=== PATIENT | female | born 1965 | race Caucasian/White ===

== ENCOUNTER 2021-08-23 00:48 | Day surgery (SDC) | payer BC, SELFPAY ==
[2021-08-09 08:33] VITALS: BMI 22.9
--- NOTE | 2021-08-23 08:31 | WPDANESEPPF ---
Anes - Initial Pre Proc Eval Procedure: Operation Date: 08/23/21 11:45 Proposed Procedures p Screening Colonoscopy - Sarkis Lomeli MD Date/Time: 08/23/21 08:31 Surgeon: Sarkis Lomeli MD Pre Op Diagnosis: neoplasm screening Patient Data Age: 56 Gender: F Height: 1.78 m Weight: 72.5 kg Allergies Allergy/AdvReac Type Severity Reaction Status Date / Time fluconazole Allergy Unknown sores on Verified 08/09/21 08:31 hands Home Medications Medication Instructions Recorded Confirmed Type amitriptyline 50 mg tablet 50 mg PO ONCE 06/13/20 08/09/21 History levothyroxine 125 mcg tablet 125 mcg PO DAILY 06/13/20 08/09/21 History multivitamin 1 tablet PO DAILY 08/09/21 08/09/21 History Patient hx anesthesia problems: none Family hx anesthesia problems: none Results Review: All pre-operative results and documents have been reviewed as part of the pre-operative evaluation. [facility] Past Medical History Medical History (Updated 08/23/21 @ 10:23 by Sarkis Lomeli MD) Hypercholesterolemia Hyperthyroidism Hypothyroidism Latex allergy Moderate ankle sprain Peroneal tendinitis of right lower extremity Seasonal allergies Vision abnormalities Vision loss Surgical History Surgical History History of carpal tunnel release of both wrists History of lumbar surgery History of repair of ACL Family History Family History Other Breast cancer Diabetes mellitus Hypertension Social History Social History (Updated 06/14/20 @ 12:49 by Ashly Brock RT(R)) Smoking packs per day: 0.5 Smoking cigarettes per day: 10.0 Years smoked: 24 Smoking pack-years: 12.00 Smoking status: Former smoker Tobacco type: cigarettes Smoking end date: 10/13/06 Alcohol intake: current Drinks per week: 3 Substance use: unknown Living arrangements: with family 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[employer] Gender identity (if verbalized by the patient): Female Spiritual care concerns: No Anes - Eval Final PreProcedure Day of Procedure 08/23/21 08:31 Patient weight: normal Heart: regular rate and rhythm Lungs: clear to auscultation and normal air movement Airway: Mallampati scale class II Neurological: alert and oriented Last oral intake: >/= 8 hours ASA classification: II Emergent: no Anesthetic plan: proceed Anesthesia type and monitoring: general GIVS Results Review: All pre-operative results and documents have been reviewed as part of the pre-operative evaluation. Informed Consent: The patient's anesthetic plan and its attendant risks and benefits were discussed with the patient/family/POA. Questions were solicited and answers provided to the satisfaction of the patient/family/POA.
--- NOTE | 2021-08-23 10:22 | P.CONGI_ITS ---
Assessment and Plan Assessment and plan (1) Encounter for screening colonoscopy: Code(s): Z12.11 - Encounter for screening for malignant neoplasm of colon Status: Acute Assessment and Plan: Patient presents for screening colonoscopy. Further recommendations will be given after endoscopy. High-fiber diet is advised. GI Consult Note Consult date/time: 08/23/21 10:22 HPI: Marita Garcia is a 56 year old female Presents for screening colonoscopy. Patient reports that her current weight appetite bowel movements are normal. She denies abdominal pain. She has had no bleeding. Family history is noncontributory. Patient reports over the last several weeks she has had some tendency to be gassy with very small pellet-like stools. she presents today for neoplasia screening colonoscopy. Review of Systems Review of Systems: All systems reviewed & are unremarkable except as noted in HPI and below PMFSH Past Medical History Medical History (Updated 08/23/21 @ 10:23 by Sarkis Lomeli MD) Hypercholesterolemia Hyperthyroidism Hypothyroidism Latex allergy Moderate ankle sprain Peroneal tendinitis of right lower extremity Seasonal allergies Vision abnormalities Vision loss Surgical History Surgical History History of carpal tunnel release of both wrists History of lumbar surgery History of repair of ACL Family History Family History Other Breast cancer Diabetes mellitus Hypertension Social History Social History (Updated 06/14/20 @ 12:49 by Ashly Brock, RT(R)) Smoking packs per day: 0.5 Smoking cigarettes per day: 10.0 Years smoked: 24 Smoking pack-years: 12.00 Smoking status: Former smoker Tobacco type: cigarettes Smoking end date: 10/13/06 Alcohol intake: current Drinks per week: 3 Substance use: unknown Living arrangements: with family 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 Vital signs stable. HEENT exam is unremarkable. Patient is anicteric. Lungs are clear to auscultation and percussion. Heart is without murmur or extra sounds. Abdomen bowel sounds are present soft nontender with no hepatosplenomegaly digital exte rnal rectal exam is normal.
[2021-08-23 10:33] VITALS: BP 140/71; PULSE 76; RESP 16; TEMP 35.8; O2SAT 100; BMI 22.1
[2021-08-23] MEDS: LACTATED RINGERS 1,000 ML 150 ML IV CONT (10:45)
[2021-08-23 11:27] VITALS: BP 110/75; PULSE 88; RESP 21; O2SAT 99
[2021-08-23 11:37] VITALS: BP 117/79; PULSE 80; RESP 25; O2SAT 100
[2021-08-23 11:47] VITALS: BP 122/78; PULSE 77; RESP 18; O2SAT 99
[2021-08-23] MEDS: PROPARACAINE HCL 0.5% 15 ML OPHTH SOLN 1 DROP EACH EYE (11:51)
[2021-08-23] MEDS: ARTIFICIAL TEARS OPHTH SOLN 15 ML BOTTLE 1 DROP EACH EYE (11:52)
[2021-08-23] MEDS: DICLOFENAC SODIUM 0.1% OPHTH SOLN 2.5 ML BOTTLE 1 DROP EACH EYE (11:53)
== END 2021-08-23 12:05 | disposition home or self-care (01) ==
PROVIDERS: PCP Family Medicine Adolescent Medicine; Visit Provider Internal Medicine Gastroenterology
PROC: 0DJD8ZZ Inspection of Lower Intestinal Tract, Via Natural or Artificial Opening Endoscopic (ICD-10-PCS; CPT 45378; principal; 2021-08-23 11:45)
DX: Z12.11 Encounter for screening for malignant neoplasm of colon (principal); E78.00 Pure hypercholesterolemia, unspecified; E03.9 Hypothyroidism, unspecified; Z87.891 Personal history of nicotine dependence
CPT/HCPCS: 45378; A9270; J2001; J2704; J7120

== ENCOUNTER → 2022-06-05 16:36 | Outpatient (CLI) | payer BC, SELFPAY ==
--- NOTE | ~2022-06-05 | XR_ITS ---
EXAMINATION: XR hand LT min 3V, XR hand RT min 3V DATE: 06/05/2022 16:52 INDICATION: Primary osteoarthritis of the bilateral hands TECHNIQUE: 1. Posteroanterior, oblique and lateral views of the left hand were obtained. 2. Posteroanterior, oblique and lateral views of the right hand were obtained. COMPARISON: None. FINDINGS: Bone alignment is normal at the bilateral hands. No fracture. Relatively symmetric pattern of polyart icular osteoarthritis characterized by mild nonuniform joint space narrowing and/or small marginal os teophytes. This is moderate severity at the right third proximal interphalangeal joint and left secon d proximal interphalangeal joint and mild at the left first carpometacarpal, bilateral distal radioul que the C5 and many of the remaining proximal and distal interphalangeal joints. No erosions to sugge st an inflammatory arthritis. Mild soft tissue swelling about the right third proximal interphalangea l joint and at the radial aspect of the left second proximal phalanx. IMPRESSION: 1. 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 Reviewed, dictated and finalized at location A. IMPRESSION: 1. 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
== END ==
PROVIDERS: PCP Family Medicine Adolescent Medicine; Visit Provider Plastic Surgery
DX: M19.041 Primary osteoarthritis, right hand (principal); M19.042 Primary osteoarthritis, left hand
CPT/HCPCS: 73130

== ENCOUNTER 2022-08-07 08:34 | Outpatient (CLI) | payer BC, SELFPAY ==
--- NOTE | 2022-08-07 11:00 | NEURO_ITS ---
Impression: # Complains of bilateral hand numbness. # Mild left Carpal Tunnel Syndrome. # Needle/EMG exam not requested. # Clinical correlation recommended. Motor Nerve Conduction Upper Extremities Median Nerve Conduction Velocity (m/sec) Terminal Latency (msec) Response Voltage(mV) Elbow-Wrist Wrist Elbow Wrist Right 57 3.3 5 8 Left 57 3.1 4 6 Ulnar Nerve Conduction Velocity (m/sec) Terminal Latency (msec) Response Voltage(mV) Above Elbow Below Elbow Wrist Above Elbow Below Elbow Wrist Right 61 61 3.0 5 5 7 Left 61 59 3.0 6 6 7 F-Wave Latency Median (ms) Ulnar (ms) Right 29.9 28.4 Left 29.8 29.5 Sensory Nerve Conduction Upper Extremities Median Nerve Stimulation Terminal Latency (msec) Wrist/Digit Response Voltage (uV) Wrist Right 3.4/3.6 47/44 Left 3.7/3.9 67/64 Ulnar Nerve Stimulation Terminal Latency (msec) Wrist/Digit Response Voltage (uV) Wrist Right 3.7 48 Left 3.6 50 Radial Nerve Terminal Latency (msec) Response Voltage(mV) Right 2.3 36 Left 2.4 36 MTDD
== END 2022-08-07 08:35 | disposition home or self-care (01) ==
LOC: ANHNEURO 08:36
PROVIDERS: PCP Family Medicine Adolescent Medicine; Visit Provider Plastic Surgery
DX: R20.0 Anesthesia of skin (principal); G56.03 Carpal tunnel syndrome, bilateral upper limbs; G56.23 Lesion of ulnar nerve, bilateral upper limbs
CPT/HCPCS: 95911

== ENCOUNTER 2024-09-28 21:40 | Emergency (ER) | payer OTHER, BC, SELFPAY ==
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
[2024-09-28 20:15] VITALS: BP 127/9; BP 127/90; PULSE 84; PULSE 85; RESP 16; O2SAT 98
[2024-09-28 20:16] VITALS: PULSE 85; RESP 17; O2SAT 97
[2024-09-28 20:31] VITALS: BP 124/76; PULSE 83; RESP 16; O2SAT 100
--- NOTE | 2024-09-28 20:31 | ECG_ITS ---
Test Date: 2024-09-28 20:40:21 Measurements Intervals [place] Rate: 79 P: 63 OK: 159 QRS: 70 QRSD: 89 T: 48 QT: 389 QTc: 447 Interpretive Statements SINUS RHYTHM No previous ECG available for comparison Electronically Signed On 09-29-2024 14:23:47 SHOP CLERK by Sasha Jack M.D.
[2024-09-28] MEDS: KETOROLAC 30 MG/ML VIAL (*BKC) IV PUSH (20:41)
[2024-09-28 20:46] VITALS: BP 123/75; PULSE 80; RESP 12; O2SAT 99
[2024-09-28 21:01] VITALS: BP 113/70; PULSE 78; RESP 22; O2SAT 97
[2024-09-28 21:07] LABS: Basophils Percent Auto 0.5 % (0.2-1.2); Eosinophils Absolute Auto 0.2 K/mm3 (0-0.3); Eosinophils Percent Auto 2.9 % (0-4.4); Immature Granulocyte Absolute 0.01 K/mm3 (0.00-0.031); Immature Granulocyte Percent A 0.2 % (0-0.5); Lymphocytes Percent Auto 28.6 % (18.3-44.2); Mean Corpuscular HGB Conc 33.3 g/dl (32-36); Mean Corpuscular Hemoglobin 31.6 pg (26-34); Mean Corpuscular Volume 94.8 fl (80-100); Mean Platelet Volume 9.8 fl (7.4-10.4); Monocytes Absolute Auto 0.5 K/mm3 (0.1-0.6); Monocytes Percent Auto 7.2 % (2.6-8.5); Neutrophils Percent Auto 60.6 % (45.5-73.1); Platelet Count Result 346 k/mm3 (150-375); Red Blood Count 4.43 M/mm3 (4.2-5.4); White Blood Count 6.7 K/mm3 (4.5-10.0)
[2024-09-28 21:20] LABS: Alanine Aminotransferase 22 U/L (6-35); Albumin Level 4.4 g/dL (3.5-5.1); Alkaline Phosphatase 85 U/L (38-126); Anion Gap 6 mmol/L (4-12); Aspartate Amino Transferase 27 U/L (14-36); Bilirubin,Total 0.3 mg/dL (0.2-1.3); Blood Urea Nitrogen 17 mg/dL (7-17); Calcium 9.3 mg/dL (8.4-10.2); Carbon Dioxide 28 mmol/L (22-30); Chloride 104 mmol/L (98-107); Estimated CRCL calculation 95 ml/min; Estimated Glomerular Filt Rate > 60; Glucose 120 mg/dL (65-110); Potassium 3.6 mmol/L (3.4-5.0); Sodium 138 mmol/L (137-145)
[2024-09-28 22:13] VITALS: BP 108/66; PULSE 85; RESP 18; O2SAT 99
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
== END 2024-09-28 22:50 | disposition home or self-care (01) ==
PROVIDERS: Emergency Provider Emergency Medicine; PCP Family Medicine Adolescent Medicine
DX: S16.1XXA Strain of muscle, fascia and tendon at neck level, initial encounter (principal); S20.211A Contusion of right front wall of thorax, initial encounter; S93.402A Sprain of unspecified ligament of left ankle, initial encounter; E03.9 Hypothyroidism, unspecified; Z87.891 Personal history of nicotine dependence; Z79.899 Other long term (current) drug therapy; J43.9 Emphysema, unspecified; M47.812 Spondylosis without myelopathy or radiculopathy, cervical region; V49.40XA Driver injured in collision with unspecified motor vehicles in traffic accident, initial encounter
CPT/HCPCS: 36415; 70450; 71260; 72125; 73610; 73630; 74177; 80053; 85025; 93005; 96374; 99284; J1885; Q9967